=== PATIENT | male | born 1940 | race Two or more races ===

== ENCOUNTER → 2024-01-24 | Outpatient (CLI) | payer MEDICARE, MEDICAID, SELFPAY ==
[2024-01-24 08:29] LABS: Prostate Specific Antigen 7.23 ng/mL (0-4.00)
== END | disposition home or self-care (01) ==
PROVIDERS: PCP Family Medicine; Referring Provider Family Medicine; Visit Provider Family Medicine
DX: N42.9 Disorder of prostate, unspecified (principal)
CPT/HCPCS: 36415; 84153

== ENCOUNTER → 2024-04-03 | Outpatient (CLI) | payer OTHER, MEDICAID, SELFPAY ==
[2024-04-03 08:37] LABS: Basophils % (Auto) 1 % (0-2.5); Eosinophils # (Auto) 0.1 Thou/mm3 (0.0-0.5); Eosinophils % (Auto) 1 % (0-10); Hematocrit 45.3 % (41.0-53.0); Hemoglobin 14.5 g/dL (13.5-16.0); Immature Granulocytes % (Auto) 0 % (0-0); Immature Granulocytes Auto 0.02 Thou/mm3 (0.00-0.00); Lymphocytes # (Auto) 1.5 Thou/mm3 (1.0-4.8); Lymphocytes % (Auto) 22 % (10-50); Mean Corpuscular Hemoglobin 28.8 pg (25.0-35.0); Mean Corpuscular Volume 90 fL (80-100); Monocytes # (Auto) 0.5 Thou/mm3 (0.0-0.8); Monocytes % (Auto) 8 % (0-12); Neutrophils # (Auto) 4.7 Thou/mm3 (1.8-7.7); Neutrophils % (Auto) 69 % (37-80); Nucleated Red Blood Cell % 0 /100 WBC (0); Platelet Count 174 Thou/mm3 (140-440); RDW Standard Deviation 48.6 fL (35.1-43.9); Red Blood Count 5.04 Miln/mm3 (4.50-5.90); White Blood Count 6.8 Thou/mm3 (3.8-10.6)
[2024-04-03 09:27] LABS: Alanine Aminotransferase 14 U/L (10-49); Albumin, Serum 4.2 gm/dL (3.4-4.8); Alkaline Phosphatase 99 U/L (46-116); Anion Gap 5 (7-16); Aspartate Amino Transferase 23 U/L (0-34); BUN/Creatinine Ratio 18 Ratio (12-20); Bilirubin,Direct 0.2 mg/dL (0.0-0.3); Bilirubin,Total 0.6 mg/dL (0.3-1.2); Blood Urea Nitrogen 23 mg/dL (9-23); Calcium 10.4 mg/dL (8.3-10.6); Carbon Dioxide 28.8 mMol/L (20.0-31.0); Cardiac Risk Estimate 3.4 RATIO (4.0-6.7); Chloride 106 mMol/L (98-107); Cholesterol 139 mg/dL (132-200); Creatinine (Component) 1.3 mg/dL (0.6-1.3); Free T4 (Free Thyroxine) 0.88 ng/dL (0.89-1.76); Glucose 94 mg/dL (74-106); HDL Cholesterol 41 mg/dL (40-60); LDL Cholesterol,Calculated 79 mg/dL (0-130); Osmolality,Calculated 283 (275-295); Potassium 5.4 mMol/L (3.4-5.1); Sodium 140 mMol/L (136-145); Thyroid Stimulating Hormone 1.66 uIU/mL (0.55-4.78); Total Protein 6.9 gm/dL (5.7-8.2); Triglycerides 96 mg/dL (30-150); eGFR 54 See Note
== END | disposition home or self-care (01) ==
LOC: COPL 07:46
PROVIDERS: PCP Family Medicine; Referring Provider Internal Medicine Cardiovascular Disease; Visit Provider Internal Medicine Cardiovascular Disease
DX: I10 Essential (primary) hypertension (principal); E78.5 Hyperlipidemia, unspecified; I20.9 Angina pectoris, unspecified
CPT/HCPCS: 36415; 80048; 80061; 80076; 84439; 84443; 85025

== ENCOUNTER 2024-08-17 06:20 | Day surgery (SDC) | payer OTHER, MEDICAID, SELFPAY ==
--- NOTE | 2024-08-15 06:39 | EKG_ITS ---
[facility] Test Date: 2024-08-15 Pat Name: FARNAZ STAFFORD Department: Room: - Gender: Male Training And Development Professional: ANAYV2 : 1940 Requested By: Ruben Grady Order Number: [id number] Reading MD: Ruben Grady Measurements Intervals [place] Rate: 49 P: 25 [place]: 149 QRS: 31 QRSD: 126 T: 37 QT: 451 QTc: 410 Interpretive Statements SINUS BRADYCARDIA SEPTAL MYOCARDIAL INFARCTION , OF INDETERMINATE AGE [40+ ms Q WAVE IN V1/V2] MODERATE T-WAVE ABNORMALITY, CONSIDER LATERAL ISCHEMIA [-0.1+ mV T WAVE IN I/aVL/V5/V6] No previous ECG available for comparison /store/S0/[id number]/ecg/[id number].pdf
[2024-08-15 09:14] VITALS: BMI 33.3
[2024-08-15 09:39] LABS: Collection Type, Urine Clean Catch
[2024-08-15 11:05] LABS: Basophils # (Auto) 0.0 Thou/mm3 (0.0-0.2); Basophils % (Auto) 1 % (0-2.5); Eosinophils # (Auto) 0.1 Thou/mm3 (0.0-0.5); Eosinophils % (Auto) 1 % (0-10); Hematocrit 42.9 % (41.0-53.0); Hemoglobin 13.6 g/dL (13.5-16.0); Immature Granulocytes Auto 0.01 Thou/mm3 (0.00-0.00); Lymphocytes # (Auto) 1.5 Thou/mm3 (1.0-4.8); Lymphocytes % (Auto) 21 % (10-50); Mean Corpuscular HGB Conc 31.7 g/dl (31.0-37.0); Mean Corpuscular Hemoglobin 28.8 pg (25.0-35.0); Mean Corpuscular Volume 91 fL (80-100); Monocytes # (Auto) 0.5 Thou/mm3 (0.0-0.8); Monocytes % (Auto) 6 % (0-12); Neutrophils # (Auto) 5.2 Thou/mm3 (1.8-7.7); Neutrophils % (Auto) 71 % (37-80); Nucleated Red Blood Cell # 0.00 Thou/mm3 (0.00-0.00); Nucleated Red Blood Cell % 0 /100 WBC (0); Platelet Count 165 Thou/mm3 (140-440); RDW Standard Deviation 50.0 fL (35.1-43.9); Red Blood Count 4.73 Miln/mm3 (4.50-5.90); White Blood Count 7.3 Thou/mm3 (3.8-10.6)
[2024-08-15 11:07] LABS: Bilirubin,Urine Negative (Negative); Blood,Urine Negative (Negative); Clarity,Urine Clear (Clear/Hazy); Color,Urine Yellow (Lt Yel-Yel); Glucose, Urine Negative (Negative); Ketones,Urine Negative (Negative); Leukocyte Esterase,Urine Negative (Negative); Nitrite,Urine Negative (Negative); PH,Urine 6.0 (5.0-7.0); Protein,Urine 1+ (Neg - Trace); RBC,Urine 3 /hpf (0-3); Specific Gravity,Urine 1.019 (1.001-1.035); Squamous Epithelial Cell,Urine < 1 /hpf (0-5); Urobilinogen,Urine Negative mg/dL (0.0-1.0); WBC,Urine 1 /hpf (0-5)
[2024-08-15 11:13] LABS: Alanine Aminotransferase 14 U/L (10-49); Albumin, Serum 4.3 gm/dL (3.4-4.8); Albumin/Globulin Ratio 1.5 (1.2-2.2); Alkaline Phosphatase 91 U/L (46-116); Anion Gap 5 (7-16); Aspartate Amino Transferase 22 U/L (0-34); BUN/Creatinine Ratio 13 Ratio (12-20); Bilirubin,Total 0.7 mg/dL (0.3-1.2); Blood Urea Nitrogen 18 mg/dL (9-23); Calcium 9.8 mg/dL (8.3-10.6); Calcium (Corrected) 9.8 mg/dL (8.5-10.1); Carbon Dioxide 27.5 mMol/L (20.0-31.0); Chloride 109 mMol/L (98-107); Creatinine (Component) 1.4 mg/dL (0.6-1.3); Estimated Creatinine Clearance 46.0 mL/min (>60); Globulin 2.8 gm/dL (2.3-3.5); Glucose 102 mg/dL (74-106); Osmolality,Calculated 283 (275-295); Potassium 4.6 mMol/L (3.4-5.1); Sodium 141 mMol/L (136-145); Total Protein 7.1 gm/dL (5.7-8.2); eGFR 49 See Note
--- NOTE | 2024-08-16 12:58 | ESHP_ITS ---
RE: FARNAZ STAFFORD : 1940 DATE OF ADMISSION: 08/16/2024 HISTORY OF PRESENT ILLNESS: The patient is an 84-year-old gentleman [place]- speaking with nocturia 4-5 times. Fair urinary stream. No history of burning. No history of gross hematuria. PAST SURGICAL HISTORY: Previous surgery is none. FAMILY HISTORY: He has 5 children. PAST MEDICAL HISTORY: He has a history of hypertension. No history of diabetes. ALLERGIES: TO MEDICATIONS NONE. HOME MEDICATIONS: He takes: 1. Statin medication. 2. Norvasc. 3. Tamsulosin b.i.d. 4. Meclizine. PHYSICAL EXAMINATION: Clinical examination reveals HEENT normal. Neck is supple. Lungs are clear. Heart sounds are normal. Abdomen is soft. Phallus is normal. The patient is obese. Testes are down in the scrotum. Rectal examination reveals moderately and a smooth prostate. IMPRESSION: Elevated prostate-specific antigen of 4.6. Prostatism, the prostate-specific antigen has gone up now to 7.23. PLAN: Cystoscopy, transrectal prostatic ultrasound with ultrasound-guided prostatic neoplasm. Planned procedure, risks and complications have been discussed with the patient. The patient has understood them and agreed to proceed. Thank you very much for your kind referral. cc: Shaggy Fu MD DT: 11:54:57 TT: 12:56:00 Ref: [id number] - TID: [id number]
[2024-08-17] VITALS (8 sets, daily range): BP systolic 141–172; BP diastolic 69–76; PULSE 51–72; RESP 12–16; TEMP 36.1–36.7; O2SAT 96–100; BMI 32.5
[2024-08-17] MEDS: SODIUM CHLORIDE 0.9% 500 ML 500 ML 20 ML IV (07:05)
--- NOTE | 2024-08-17 09:19 | SUR.PHASEI ---
pt arrived to PACU via gurney with oral airway which was removed upon arrival, breathing unlabored, VS stable, report from Madi MOY, Jose Enrique CARMICHAEL, and Bg MARES
--- NOTE | 2024-08-17 09:45 | SUR.PHASEI ---
pt tolerating oral fluids without difficulty swallowing or n/v
--- NOTE | 2024-08-17 10:33 | SUR.PHASEII ---
pt awake, alert, able to follow commands, breathing unlabored, VS stable, pt able to dress self and ambulate to wheelchair with steady gait, discharge instructions given with daughter Tila present using telephone translator and interpreter Jane ID#[id number], all questions answered, pt and daughter verbalize understanding of discharge instructions, pt discharged via wheelchair with all belongings and copies of discharge paperwork.
--- NOTE | 2024-08-17 10:48 | ESOP_ITS ---
RE: FARNAZ STAFFORD : 1940 DATE OF OPERATION: 08/17/2024 PREOPERATIVE DIAGNOSES: Prostatism, prostatic obstruction, elevated PSA of 7.23. POSTOPERATIVE DIAGNOSES: Prostatism, prostatic obstruction, elevated PSA of 7.23. PROCEDURE PERFORMED: Cystoscopy, urethral dilatation, transrectal prostatic ultrasound with ultrasound-guided prostatic needle biopsy. ANESTHESIA: General. INDICATION FOR PROCEDURE: The patient is an 84-year-old gentleman with a history of prostatism, nocturia 4-5 times. His PSA has gone up from 4.6 to 7.23. Rectally, he has a moderately enlarged smooth prostate without any hard nodules. He is now scheduled to have cystoscopy and transrectal prostatic ultrasound with ultrasound-guided prostatic needle biopsy. Planned procedure, risks, and complications have been discussed with the patient. The patient has understood them and agreed to proceed. DESCRIPTION OF PROCEDURE: After the patient was brought to the operating table under adequate general anesthesia, in dorsal lithotomy position, parts were prepped and draped in the usual fashion. Cystoscopy was then carried out in a standard fashion, which revealed adequate urethral meatus, normal-appearing urethra. Prostatic urethra revealed moderately large prostate, bilobed. Left lobe appears to be somewhat bigger than the right. Scope was introduced into the bladder. Residual urine is about 4 ounces, yellow and clear. There are no intravesical stones or tumors. Ureteral orifices were found to be normal in position and appearance. Scope was withdrawn. The patient was then turned in left lateral position. Transrectal prostatic ultrasound was carried out. Biopsies were obtained from both lobes using ultrasound guidance. Prostatic volume was measured at 98.8 cubic cm. The patient tolerated the entire procedure well and left the room in good condition. DT: 09:26:22 TT: 10:46:00 Ref: [id number] - TID: [id number]
== END 2024-08-17 10:33 | disposition home or self-care (01) ==
PROVIDERS: Anesthesiology; PCP Family Medicine; Referring Provider Surgery; Visit Provider Surgery
PROC: (CPT 55700; principal; 2024-08-17 08:30)
PROC: 0TJB8ZZ Inspection of Bladder, Via Natural or Artificial Opening Endoscopic (ICD-10-PCS; CPT 52000; 2024-08-17 08:30)
DX: N40.1 Benign prostatic hyperplasia with lower urinary tract symptoms (principal); R97.20 Elevated prostate specific antigen [PSA]; Z01.810 Encounter for preprocedural cardiovascular examination
CPT/HCPCS: 55700; 36415; 76942; 80053; 81001; 85025; 87086; 93005; A4217; A4649; J0694; J1100; J2405; J2704; J3010; J3490; J7999; J1596

== ENCOUNTER → 2024-11-23 | Outpatient (CLI) | payer OTHER, MEDICAID, SELFPAY ==
--- NOTE | 2024-11-23 07:57 | EKG_ITS ---
[facility] Test Date: 2024-11-23 Pat Name: FARNAZ STAFFORD Department: Room: - Gender: Male [employer] Supervisor: TIERA : 1940 Requested By: Gary Torres Order Number: [id number] Reading MD: Gary Torres Measurements Intervals [place] Rate: 63 P: 58 [place]: 165 QRS: 4 QRSD: 120 T: -89 QT: 410 QTc: 422 Interpretive Statements SINUS RHYTHM MODERATE INTRAVENTRICULAR CONDUCTION DELAY [110+ ms QRS DURATION] MODERATE T-WAVE ABNORMALITY, CONSIDER ANTEROLATERAL ISCHEMIA [-0.1+ mV T WAVE IN V3-V6] Compared to ECG 08/15/2024 09:52:23 Intraventricular conduction delay now present Sinus bradycardia no longer present Myocardial infarct finding no longer present T-wave abnormality still present Possible ischemia still present /store/S0/[id number]/ecg/[id number].pdf
== END | disposition home or self-care (01) ==
LOC: SEKG 07:39
PROVIDERS: Referring Provider Ophthalmology; Visit Provider Ophthalmology
DX: Z01.810 Encounter for preprocedural cardiovascular examination (principal); H25.811 Combined forms of age-related cataract, right eye
CPT/HCPCS: 93005